=== PATIENT | male | born 1990 | race African-American/Black ===

== ENCOUNTER 2016-10-24 16:44 | Emergency (ER) | payer SELFPAY ==
[~2016-10-24] VITALS: Ht 170.2 cm; Wt 90.5 kg
[~2016-10-24 16:44] MED LIST: HYDR-3533 PO; OMEP20TA PO; SUCR1TAB PO
[2016-10-24 16:46] VITALS: BP 146/99; PULSE 73; RESP 18; TEMP 97.8; O2SAT 97
[2016-10-24] MEDS ORDERED: SODIUM CHLOR 0.9% 1000 ML INJ 1,000 ML IV SCH (17:25)
[2016-10-24 17:27] VITALS: BP 175/89; PULSE 64; RESP 17; O2SAT 99
--- NOTE | 2016-10-24 17:29 | PD ---
HPI Chief Complaint: Abdominal Pain Time Seen by Provider: 17:22 Travel History International Travel<30 days: No Contact w/Intl Traveler<30days: No Traveled to known affect area: No History of Present Illness HPI 26-year-old male with history of alcoholic gastritis, here with friend for evaluation of abdominal pain. Patient has not had an alcoholic beverage in last 1.5 weeks. He usually drinks a moderate amount of alcohol daily. He is having epigastric and mid abdominal pain that started yesterday. The patient is in moderate distress secondary to pain and does not provide much history. Most of his history is provided by female friend in the room. Patient does not characterize his pain. No history of abdominal surgeries. His urine was darker than usual this morning. He has been coughing up greenish sputum. No hematemesis or coffee-ground emesis. No fever. PFSH Past Medical History Medical History: Denies Significant Hx Asthma: Yes Diminished Hearing: No Tetanus Vaccination: > 5 Years Influenza Vaccination: No Social History Alcohol Use: Yes ("HEAVILY EVERY DAY") Tobacco Use: No Substance Use: Yes (MARIJUANA "ALL DAY EVERYDAY") Allergies-Medications (Allergen,Severity, Reaction): Coded Allergies: No Known Allergies (Unverified , 10/24/16) Reported Meds & Prescriptions Reported Meds & Active Scripts Active No Active Prescriptions or Reported Medications Review of Systems Except as stated in HPI: all other systems reviewed are Neg Physical Exam Narrative GENERAL: Well-developed, well-nourished, moderate distress secondary to abdominal pain. SKIN: Warm and dry. HEAD: Atraumatic. Normocephalic. EYES: Pupils equal and round. No scleral icterus. No injection or drainage. ENT: Mucous membranes pink and dry. CARDIOVASCULAR: Regular rate and rhythm. No murmur appreciated. RESPIRATORY: No accessory muscle use. Clear to auscultation. Breath sounds equal bilaterally. GASTROINTESTINAL: Abdomen soft, nondistended. Moderate diffuse tenderness without peritoneal signs. Normal bowel sounds. MUSCULOSKELETAL: No obvious deformities. No clubbing. No cyanosis. No edema. NEUROLOGICAL: Awake and alert. No obvious cranial nerve deficits. Motor grossly within normal limits. Normal speech. PSYCHIATRIC: Appropriate mood and affect; insight and judgment normal. Data Data Last Documented VS Vital Signs Date Time Temp Pulse Resp B/P Pulse Ox O2 Delivery O2 Flow Rate FiO2 10/24/16 18:27 63 16 171/90 98 Room Air 3/4/17 16:46 97.8 Orders Complete Blood Count With Diff (10/24/16 17:25) Comprehensive Metabolic Panel (10/24/16:25) Lipase (10/24/16:25) Prothrombin Time / Inr (Pt) (10/24/16:25) Act Partial Throm Time (Ptt) (10/24/16:25) Urinalysis - C+S If Indicated (10/24/16:) Ct Abd/Pel W Iv Contrast(Rout) (10/24/16 17:25) Iv Access Insert/Monitor (10/24/16:25) Ecg Monitoring (10/24/16:) Oximetry (10/24/16:) Morphine Inj (Morphine Inj) (10/24/16 17:30) Ondansetron Inj (Zofran Inj) (10/24/16 17:30) Pantoprazole Inj (Protonix Inj) (10/24/16 17:30) Sodium Chlor 0.9% 1000 Ml Inj (Ns 1000 M (10/24/16 17:25) Sodium Chloride 0.9% Flush (Ns Flush) (10/24/16 17:30) Al-Mag Hy-Si 40-40-4 Mg/Ml Liq (Mag-Al P (10/24/16 17:30) Lidocaine 2% Viscous (Xylocaine 2% Visco (10/24/16 17:30) Drug Screen, Random Urine (10/24/16 17:25) Alcohol (Ethanol) (10/24/16 17:25) Iohexol 350 Inj (Omnipaque 350 Inj) (10/24/16 18:45) Labs Laboratory Tests Test 10/24/16 17:35 White Blood Count 9.2 TH/MM3 Red Blood Count 5.26 MIL/MM3 Hemoglobin 14.8 GM/DL Hematocrit 44.9 % Mean Corpuscular Volume 85.3 FL Mean Corpuscular Hemoglobin 28.2 PG Mean Corpuscular Hemoglobin 33.1 % Concent Red Cell Distribution Width 14.0 % Platelet Count 187 TH/MM3 Mean Platelet Volume 9.5 FL Neutrophils (%) (Auto) 74.5 % Lymphocytes (%) (Auto) 15.7 % Monocytes (%) (Auto) 9.6 % Eosinophils (%) (Auto) 0.1 % Basophils (%) (Auto) 0.1 % Neutrophils # (Auto) 6.8 TH/MM3 Lymphocytes # (Auto) 1.4 TH/MM3 Monocytes # (Auto) 0.9 TH/MM3 Eosinophils # (Auto) 0.0 TH/MM3 Basophils # (Auto) 0.0 TH/MM3 CBC Comment DIFF FINAL Differential Comment Prothrombin Time 11.7 SEC Prothromb Time International 1.1 RATIO Ratio Activated Partial 26.6 SEC Thromboplast Time Sodium Level 139 MEQ/L Potassium Level 3.6 MEQ/L Chloride Level 101 MEQ/L Carbon Dioxide Level 28.7 MEQ/L Anion Gap 9 MEQ/L Blood Urea Nitrogen 12 MG/DL Creatinine 1.62 MG/DL Estimat Glomerular Filtration 62 ML/MIN Rate Random Glucose 112 MG/DL Calcium Level 9.7 MG/DL Total Bilirubin 0.6 MG/DL Aspartate Amino Transf 50 U/L (AST/SGOT) Alanine Aminotransferase 45 U/L (ALT/SGPT) Alkaline Phosphatase 42 U/L Total Protein 8.6 GM/DL Albumin 5.1 GM/DL Lipase 89 U/L Ethyl Alcohol Level LESS THAN 3 MG/DL MDM Medical Decision Making Medical Screen Exam Complete: Yes Emergency Medical Condition: Yes Medical Record Reviewed: Yes Differential Diagnosis Gastritis, peptic ulcer disease, pancreatitis, hepatobiliary disease, appendicitis, colitis, Narrative Course Vital signs show heart rate 73, blood pressure 146/99, pulse ox 97% on room air , oral temp of 97.8F. CBC is unremarkable. CMP is remarkable for creatinine 1.62, GFR 62 which is around his baseline, otherwise unremarkable. Lipase is 89. CT abdomen pelvis: FINDINGS: No pleural or pericardial effusions are seen. Liver, gallbladder, spleen, pancreas, adrenal glands, bilateral kidneys are normal in appearance. Small fat containing umbilical hernia. The appendix, small bowel and large bowel are normal. Urinary bladder and prostate unremarkable. No adenopathy or aneurysm. No obstruction, free fluid or free air. Osseous structures are intact. Lung bases are clear. CONCLUSION: Normal examination. Patient was given a GI cocktail, IV morphine, Protonix, a liter of normal saline IV, and is resting comfortably. His abdominal exam is benign. He is likely suffering from gastritis as he consumes a moderate amount of alcohol. His alcohol level is negative. He is not displaying any signs or symptoms of alcohol withdrawal. He is stable for discharge home with outpatient follow-up with a primary care physician this week. I will discharge him home with a prescription for Protonix. I will also given the name of the body shop worker montessori toddler teacher with whom to follow-up with. He was informed on when to return to the emergency department. He verbalizes understanding and agreement with plan Diagnosis Primary Impression: Abdominal pain Qualified Code: R10.13 - Epigastric pain Referrals: Esvin Montalvo MD 3 days [facility] Primary Care Physician 3 days Additional Instructions: Follow-up with a primary care physician this week. Follow-up with body shop worker Dr. Selvin hernandez or a body shop worker of your choice this week. Return to the emergency department for worsening symptoms or any other concerns. Scripts Tramadol 50 Mg Tab50 Mg PO Q6H PRN (PAIN) #12 TAB Ref 0 Prov:Denny Carlin MD 10/24/16 Pantoprazole (Protonix)40 Mg Tab40 Mg PO DAILY #30 TAB Ref 2 Prov:Denny Carlin MD 10/24/16 Disposition: 01 DISCHARGE HOME Condition: Stable Denny Carlin MD Oct 24, 2016 17:29
[2016-10-24] MEDS ORDERED: ALUMINUM/MAGNESIUM/SIMETH 30 ML CUP PO ONE (17:30)
[2016-10-24] MEDS ORDERED: PANTOPRAZOLE SODIUM 40 MG VIAL IVP ONE (17:30)
[2016-10-24] MEDS ORDERED: ONDANSETRON HCL 4 MG/2 ML VIAL IVP ONE (17:30)
[2016-10-24] MEDS ORDERED: LIDOCAINE VISCOUS 2% SOLN 15 ML UDC PO ONE (17:30)
[2016-10-24] MEDS ORDERED: MORPHINE SULFATE 4 MG/ML INJ IV PUSH ONE (17:30)
[2016-10-24] MEDS ORDERED: SODIUM CHLORIDE 0.9% FLUSH 5 ML FLUSH IVF PRN (17:30)
[2016-10-24 17:53] LABS: AUTOMATED NEUTROPHIL # 6.8 TH/MM3 (1.8-7.7); BASOPHIL % 0.1 % (0.0-2.0); EOSINOPHIL % 0.1 % (0.0-4.0); HEMATOCRIT 44.9 % (39.0-51.0); HEMO FLAGS DIFF FINAL; LYMPH % 15.7 % (9.0-44.0); LYMPHOCYTE # 1.4 TH/MM3 (1.0-4.8); MEAN CELL VOLUME 85.3 FL (80.0-100.0); MEAN CORPUSCULAR HEMOGLOBIN 28.2 PG (27.0-34.0); MEAN CORPUSCULAR HGB CONC 33.1 % (32.0-36.0); MONO % 9.6 % (0.0-8.0); NEUT % 74.5 % (16.0-70.0); PLATELET COUNT 187 TH/MM3 (150-450); RED BLOOD COUNT 5.26 MIL/MM3 (4.50-5.90); WHITE BLOOD COUNT 9.2 TH/MM3 (4.0-11.0)
[2016-10-24 18:01] LABS: APTT (PATIENT) 26.6 SEC (24.3-30.1); INTERNATIONAL NORMALIZED RATIO 1.1 RATIO; PROTHROMBIN TIME - PATIENT 11.7 SEC (9.8-11.6)
[2016-10-24 18:20] LABS: ANION GAP 9 MEQ/L (5-15)
[2016-10-24 18:23] LABS: ALKALINE PHOSPHATASE 42 U/L (45-117); ALT (GPT) 45 U/L (12-78); AST (GOT) 50 U/L (15-37); BICARBONATE 28.7 MEQ/L (21.0-32.0); BLOOD UREA NITROGEN 12 MG/DL (7-18); CHLORIDE 101 MEQ/L (98-107); GLOMERULAR FILTRATION RATE 62 ML/MIN (>89); POTASSIUM 3.6 MEQ/L (3.5-5.1); SODIUM (NA) 139 MEQ/L (136-145); TOTAL BILIRUBIN ADULT 0.6 MG/DL (0.2-1.0)
[2016-10-24 18:27] VITALS: BP 171/90; PULSE 63; RESP 16; O2SAT 98
[2016-10-24] MEDS ORDERED: IOHEXOL 350 MG/ML 10 ML VIAL (for RAD DIAG) IV ONE (18:45)
--- NOTE | 2016-10-24 18:58 | RADRPT ---
EXAM DATE/TIME: 10/24/2016 18:40 [facility] COMPARISON: CT ABDOMEN & PELVIS W CONTRAST, December 22, 2015, 18:51. INDICATIONS : Diffuse abdominal pain X 2 days. IV CONTRAST: 87 cc Omnipaque 350 (iohexol) IV ORAL CONTRAST: No oral contrast ingested. RADIATION DOSE: 8.08 CTDIvol (mGy) MEDICAL HISTORY : Asthma, Gastritis SURGICAL HISTORY : None. ENCOUNTER: Initial ACUITY: 2 days PAIN SCALE: 7/10 LOCATION: abdomen TECHNIQUE: Volumetric scanning of the abdomen and pelvis was performed. Using automated exposure control and ad justment of the mA and/or kV according to patient size, radiation dose was kept as low as reasonably achievable to obtain optimal diagnostic quality images. FINDINGS: No pleural or pericardial effusions are seen. Liver, gallbladder, spleen, pancreas, adrenal glands, b ilateral kidneys are normal in appearance. Small fat containing umbilical hernia. The appendix, small bowel and large bowel are normal. Urinary bladder and prostate unremarkable. No adenopathy or aneury sm. No obstruction, free fluid or free air. Osseous structures are intact. Lung bases are clear. CONCLUSION: Normal examination. Bassem Steven MD on October 24, 2016 at 18:55 Board Certified Radiologist. This report was verified electronically.
[2016-10-24] MEDS ORDERED: TRAM50TA PO (19:21)
[2016-10-24] MEDS ORDERED: PROT40TA PO (19:21)
[2016-10-24 19:32] VITALS: BP 130/69; PULSE 73; RESP 14; O2SAT 98
== END 2016-10-24 19:56 | disposition home or self-care (01) ==
LOC: NEPC 16:44
DX: R10.13 Epigastric pain (principal)
CPT/HCPCS: 74177; 80053; 80320; 83690; 85025; 85610; 85730; 96361; 96374; 96375; 99284; C9113; J2270; J2405; J7030; Q9967

== ENCOUNTER 2016-10-27 12:24 | Emergency (ER) | payer SELFPAY ==
[~2016-10-27] VITALS: Ht 170.2 cm; Wt 95.0 kg
[~2016-10-27 12:24] MED LIST changes: -HYDR-3533 PO; -OMEP20TA PO; +PROT40TA PO; -SUCR1TAB PO; +TRAM50TA PO
[2016-10-27 12:29] VITALS: BP 165/106; PULSE 82; RESP 20; TEMP 98.4; O2SAT 100
[2016-10-27] MEDS ORDERED: ZOFR4TAB3 SL (20:54)
[2016-10-27] MEDS ORDERED: PERC7.5T13 PO (20:54)
== END 2016-10-27 15:43 | disposition left against medical advice (07) ==
LOC: NED 12:24
DX: Z53.21 Procedure and treatment not carried out due to patient leaving prior to being seen by health care provider (principal)
CPT/HCPCS: 99281

== ENCOUNTER 2016-10-27 18:57 | Emergency (ER) | payer SELFPAY ==
[~2016-10-27] VITALS: Ht 170.2 cm; Wt 88.0 kg
--- NOTE | 2016-10-27 19:51 | PD ---
HPI Chief Complaint: abdominal pain and vomiting Time Seen by Provider: 19:31 Travel History International Travel<30 days: No Contact w/Intl Traveler<30days: No Traveled to known affect area: No History of Present Illness HPI This 26-year-old male is complaining of abdominal pain. Says he been having pain for about 4 days. He went to [facility] on the fourth and had blood work which was unremarkable. He also had a CT scan done which was also normal. He had a bout of gastritis several months ago which was thought secondary to alcohol. He has not been drinking since [place] the pain is having is across the abdomen. He says the pain is constant. He has been taking Protonix. Says he been vomiting a lot. He says he has been having diarrhea but he has not had a bowel movement today PFSH Past Medical History Asthma: Yes Diminished Hearing: No Social History Alcohol Use: Yes ("HEAVILY EVERY DAY") Tobacco Use: No Substance Use: Yes (MARIJUANA "ALL DAY EVERYDAY") Allergies-Medications (Allergen,Severity, Reaction): Coded Allergies: No Known Allergies (Unverified , 10/27/16) Reported Meds & Prescriptions Reported Meds & Active Scripts Active Tramadol (Tramadol HCl) 50 Mg Tab 50 Mg PO Q6H PRN Protonix (Pantoprazole Sodium) 40 Mg Tab 40 Mg PO DAILY Review of Systems General / Constitutional: No: Fever, Chills Eyes: No: Diploplia, Blurred Vision HENT: No: Headaches, Vertigo Cardiovascular: No: Chest Pain or Discomfort, Palpitations Respiratory: No: Cough, Shortness of Breath Gastrointestinal: Positive: Nausea, Vomiting, Diarrhea, Abdominal Pain Genitourinary: No: Urgency, Frequency Musculoskeletal: No: Myalgias Skin: No Rash Psychiatric: No: Anxiety Physical Exam Narrative GENERAL: Well-developed male SKIN: Warm and dry. HEAD: Atraumatic. Normocephalic. EYES: Pupils equal and round. No scleral icterus. No injection or drainage. ENT: No nasal bleeding or discharge. Mucous membranes pink and moist. NECK: Trachea midline. No JVD. CARDIOVASCULAR: Regular rate and rhythm. No murmur appreciated. RESPIRATORY: No accessory muscle use. Clear to auscultation. Breath sounds equal bilaterally. GASTROINTESTINAL: Abdomen soft, there is epigastric tenderness, nondistended. Hepatic and splenic margins not palpable. MUSCULOSKELETAL: No obvious deformities. No clubbing. No cyanosis. No edema. NEUROLOGICAL: Awake and alert. No obvious cranial nerve deficits. Motor grossly within normal limits. Normal speech. PSYCHIATRIC: Appropriate mood and affect; insight and judgment normal. Data Data Last Documented VS Vital Signs Date Time Temp Pulse Resp B/P Pulse Ox O2 Delivery O2 Flow Rate FiO2 10/27/16 20:27 99.1 72 20 176/90 99 Orders Complete Blood Count With Diff (10/27/16 19:46) Comprehensive Metabolic Panel (10/27/16 19:46) Lipase (10/27/16 19:46) Sodium Chlor 0.9% 1000 Ml Inj (Ns 1000 M (10/27/16 20:00) Sodium Chlor 0.9% 1000 Ml Inj (Ns 1000 M (10/27/16 20:00) Hydromorphone Pf Inj (Dilaudid Pf Inj) (10/27/16 20:00) Ondansetron Inj (Zofran Inj) (10/27/16 20:00) Labs Laboratory Tests Test 10/27/16 20:00 White Blood Count 7.0 TH/MM3 Red Blood Count 5.16 MIL/MM3 Hemoglobin 14.3 GM/DL Hematocrit 44.3 % Mean Corpuscular Volume 85.8 FL Mean Corpuscular Hemoglobin 27.6 PG Mean Corpuscular Hemoglobin 32.2 % Concent Red Cell Distribution Width 13.1 % Platelet Count 219 TH/MM3 Mean Platelet Volume 9.3 FL Neutrophils (%) (Auto) 78.1 % Lymphocytes (%) (Auto) 13.3 % Monocytes (%) (Auto) 6.4 % Eosinophils (%) (Auto) 0.1 % Basophils (%) (Auto) 2.1 % Neutrophils # (Auto) 5.6 TH/MM3 Lymphocytes # (Auto) 0.9 TH/MM3 Monocytes # (Auto) 0.4 TH/MM3 Eosinophils # (Auto) 0.0 TH/MM3 Basophils # (Auto) 0.1 TH/MM3 CBC Comment DIFF FINAL Differential Comment Sodium Level 140 MEQ/L Potassium Level 3.4 MEQ/L Chloride Level 102 MEQ/L Carbon Dioxide Level 27.9 MEQ/L Anion Gap 10 MEQ/L Blood Urea Nitrogen 10 MG/DL Creatinine 1.30 MG/DL Estimat Glomerular Filtration 80 ML/MIN Rate Random Glucose 103 MG/DL Calcium Level 9.1 MG/DL Total Bilirubin 0.6 MG/DL Aspartate Amino Transf 59 U/L (AST/SGOT) Alanine Aminotransferase 49 U/L (ALT/SGPT) Alkaline Phosphatase 40 U/L Total Protein 8.0 GM/DL Albumin 4.5 GM/DL Lipase 102 U/L [facility] Medical Decision Making Medical Screen Exam Complete: Yes Emergency Medical Condition: Yes Medical Record Reviewed: Yes Differential Diagnosis Differential includes gastritis, ulcer, Narrative Course White count today is 7000. He had a CT scan several days ago which was normal. This is not suspicious for appendicitis. He has been given some IV fluids and pain medicine. He'll be released with Zofran and also Percocet I believe he does have gastritis. I recommended follow-up with a health education aide Diagnosis Primary Impression: Acute gastritis Qualified Code: K29.00 - Acute gastritis without hemorrhage, unspecified gastritis type Additional Instructions: follow up with gastroenterology Scripts Oxycodone-Acetaminophen (Percocet)7.5-325 mg Tab1 Tab PO Q4H PRN (PAIN) #20 TAB Ref 0 Prov:Gary Paul MD 10/27/16 Ondansetron Odt (Zofran Odt)4 Mg Tab4 Mg SL Q6HR PRN (Nausea/Vomiting) #20 TAB Ref 0 Prov:Gary Paul MD 10/27/16 Disposition: 01 DISCHARGE HOME Condition: Stable Gary Paul MD Oct 27, 2016 19:51
[2016-10-27] MEDS ORDERED: SODIUM CHLOR 0.9% 1000 ML INJ 1,000 ML IV ONE ×2 (20:00)
[2016-10-27] MEDS ORDERED: HYDROmorphone HCL PF 1 MG/ML VIAL IV PUSH ONE (20:00)
[2016-10-27] MEDS ORDERED: ONDANSETRON HCL 4 MG/2 ML VIAL IV PUSH ONE (20:00)
[2016-10-27 20:15] LABS: AUTOMATED NEUTROPHIL # 5.6 TH/MM3 (1.8-7.7); BASOPHIL # 0.1 TH/MM3 (0-0.2); BASOPHIL % 2.1 % (0.0-2.0); EOSINOPHIL % 0.1 % (0.0-4.0); HEMATOCRIT 44.3 % (39.0-51.0); HEMO FLAGS DIFF FINAL; LYMPH % 13.3 % (9.0-44.0); LYMPHOCYTE # 0.9 TH/MM3 (1.0-4.8); MEAN CELL VOLUME 85.8 FL (80.0-100.0); MEAN CORPUSCULAR HEMOGLOBIN 27.6 PG (27.0-34.0); MEAN CORPUSCULAR HGB CONC 32.2 % (32.0-36.0); MONO % 6.4 % (0.0-8.0); NEUT % 78.1 % (16.0-70.0); PLATELET COUNT 219 TH/MM3 (150-450); RED BLOOD COUNT 5.16 MIL/MM3 (4.50-5.90); RED CELL DISTRIBUTION WIDTH 13.1 % (11.6-17.2)
[2016-10-27 20:24] LABS: CHLORIDE 102 MEQ/L (98-107); POTASSIUM 3.4 MEQ/L (3.5-5.1); SODIUM (NA) 140 MEQ/L (136-145)
[2016-10-27 20:27] VITALS: BP 176/90; PULSE 72; RESP 20; TEMP 99.1; O2SAT 99
[2016-10-27 20:28] LABS: ANION GAP 10 MEQ/L (5-15); BICARBONATE 27.9 MEQ/L (21.0-32.0); BLOOD UREA NITROGEN 10 MG/DL (7-18)
[2016-10-27 20:30] LABS: ALT (GPT) 49 U/L (12-78); AST (GOT) 59 U/L (15-37); GLOMERULAR FILTRATION RATE 80 ML/MIN (>89)
[2016-10-27 20:32] LABS: TOTAL BILIRUBIN ADULT 0.6 MG/DL (0.2-1.0)
[2016-10-27 20:33] LABS: ALKALINE PHOSPHATASE 40 U/L (45-117)
[2016-10-27 20:54] VITALS: RESP 18
[2016-10-27] MEDS ORDERED: PERC7.5T13 PO (20:54)
[2016-10-27] MEDS ORDERED: ZOFR4TAB3 SL (20:54)
[2016-10-27 21:42] VITALS: BP 173/94
== END 2016-10-27 21:55 | disposition home or self-care (01) ==
LOC: PHED 18:57
DX: K29.00 Acute gastritis without bleeding (principal); F10.29 Alcohol dependence with unspecified alcohol-induced disorder; F12.10 Cannabis abuse, uncomplicated
CPT/HCPCS: 80053; 83690; 85025; 96361; 96374; 96375; 99284; J1170; J2405; J7030

== ENCOUNTER 2017-03-21 00:20 | Emergency (ER) | payer SELFPAY ==
[~2017-03-21] VITALS: Ht 172.7 cm; Wt 100.0 kg
[~2017-03-21 00:20] MED LIST changes: +PERC7.5T13 PO; +ZOFR4TAB3 SL
[2017-03-21 00:27] VITALS: BP 132/84; PULSE 90; RESP 16; TEMP 98.1; O2SAT 100
[2017-03-21] MEDS ORDERED: SODIUM CHLOR 0.9% 1000 ML INJ 1,000 ML IV SCH (00:29)
[2017-03-21] MEDS ORDERED: PANTOPRAZOLE SODIUM 40 MG VIAL IVP ONE (00:30)
[2017-03-21] MEDS ORDERED: MORPHINE SULFATE 4 MG/ML INJ IV PUSH ONE (00:30)
[2017-03-21] MEDS ORDERED: ONDANSETRON HCL 4 MG/2 ML VIAL IVP ONE (00:30)
[2017-03-21] MEDS ORDERED: SODIUM CHLORIDE 0.9% FLUSH 10 ML FLUSH IV FLUSH PRN (00:30)
[2017-03-21] MEDS ORDERED: ZOFR4TAB3 SL (00:54)
[2017-03-21] MEDS ORDERED: PROT40TA PO (00:54)
--- NOTE | 2017-03-21 00:54 | PD ---
HPI Chief Complaint: Abdominal Pain Time Seen by Provider: 00:26 Travel History International Travel<30 days: No Contact w/Intl Traveler<30days: No Traveled to known affect area: No History of Present Illness HPI 27-year-old man with a history of alcoholic gastritis who presents to the emergency department complaining of epigastric/periumbilical abdominal pain this is been going for the past 2 days or so. He endorses nausea and vomiting as well. He's also had some loose bowel movements. He states he's had similar symptoms intermittently for the past year or so. Denies any other new or worsening symptoms. No other complaints. Patient denies NSAID use. Denies alcohol use. History Past Medical History Narrative Medical Alcoholic gastritis Tetanus Vaccination: < 5 Years Influenza Vaccination: No Social History Alcohol Use: No Tobacco Use: No Allergies-Medications (Allergen,Severity, Reaction): Coded Allergies: No Known Allergies (Unverified , 03/21/17) Reported Meds & Prescriptions Reported Meds & Active Scripts Active Protonix (Pantoprazole Sodium) 40 Mg Tab 40 Mg PO DAILY Zofran Odt (Ondansetron Odt) 4 Mg Tab 4 Mg SL Q6HR PRN Review of Systems ROS Limitations: Poor Historian Except as stated in HPI: all other systems reviewed are Neg Physical Exam Narrative GENERAL: 27-year-old man, appears uncomfortable but nontoxic. Coronal by side. SKIN: Focused skin assessment warm/dry. CARDIOVASCULAR: Regular rate and rhythm. No murmur appreciated. RESPIRATORY: No accessory muscle use. Clear to auscultation. Breath sounds equal bilaterally. GASTROINTESTINAL: Mild diffuse periumbilical tenderness. No rebound or guarding. MUSCULOSKELETAL: No obvious deformities. No clubbing. No cyanosis. No edema. NEUROLOGICAL: Awake and alert. No obvious cranial nerve deficits. Motor grossly within normal limits. Normal speech. PSYCHIATRIC: Appropriate mood and affect; insight and judgment normal. Data Data Last Documented VS Vital Signs Date Time Temp Pulse Resp B/P Pulse Ox O2 Delivery O2 Flow Rate FiO2 03/21/17 00:27 98.1 90 16 132/84 100 Orders Complete Blood Count With Diff (03/21/17 00:29) Comprehensive Metabolic Panel (03/21/17 00:29) Lipase (03/21/17 00:29) Iv Access Insert/Monitor (03/21/17 00:29) NPO (03/21/17 00:29) Morphine Inj (Morphine Inj) (03/21/17 00:30) Ondansetron Inj (Zofran Inj) (03/21/17 00:30) Pantoprazole Inj (Protonix Inj) (03/21/17 00:30) Sodium Chlor 0.9% 1000 Ml Inj (Ns 1000 M (03/21/17 00:29) Sodium Chloride 0.9% Flush (Ns Flush) (03/21/17 00:30) Labs Laboratory Tests Test 03/21/17 00:30 White Blood Count 13.0 TH/MM3 Red Blood Count 4.57 MIL/MM3 Hemoglobin 12.6 GM/DL Hematocrit 38.8 % Mean Corpuscular Volume 84.7 FL Mean Corpuscular Hemoglobin 27.5 PG Mean Corpuscular Hemoglobin 32.5 % Concent Red Cell Distribution Width 13.6 % Platelet Count 268 TH/MM3 Mean Platelet Volume 8.3 FL Neutrophils (%) (Auto) 86.0 % Lymphocytes (%) (Auto) 9.6 % Monocytes (%) (Auto) 3.7 % Eosinophils (%) (Auto) 0.1 % Basophils (%) (Auto) 0.6 % Neutrophils # (Auto) 11.2 TH/MM3 Lymphocytes # (Auto) 1.3 TH/MM3 Monocytes # (Auto) 0.5 TH/MM3 Eosinophils # (Auto) 0.0 TH/MM3 Basophils # (Auto) 0.1 TH/MM3 CBC Comment DIFF FINAL Differential Comment Sodium Level 141 MEQ/L Potassium Level 3.5 MEQ/L Chloride Level 105 MEQ/L Carbon Dioxide Level 29.0 MEQ/L Anion Gap 7 MEQ/L Blood Urea Nitrogen 9 MG/DL Creatinine 1.44 MG/DL Estimat Glomerular Filtration 70 ML/MIN Rate Random Glucose 122 MG/DL Calcium Level 9.3 MG/DL Total Bilirubin 0.3 MG/DL Aspartate Amino Transf 17 U/L (AST/SGOT) Alanine Aminotransferase 23 U/L (ALT/SGPT) Alkaline Phosphatase 41 U/L Total Protein 8.0 GM/DL Albumin 4.2 GM/DL Lipase 101 U/L [facility] Medical Decision Making Medical Screen Exam Complete: Yes Emergency Medical Condition: Yes Interpretation(s) LABS: CBC remarkable for mild leukocytosis. CMP remarkable for creatinine 1.44 Lipase normal Differential Diagnosis Gastritis, pancreatitis, hepatobiliary disease, marijuana hyperemesis syndrome, other Narrative Course Medical decision making Is a 27-year-old man presents emergent department stating history gastritis or recurrent symptoms. Records show a history of alcoholic gastritis. Patient denies any alcohol use now. Looks uncomfortable but nontoxic. Benign abdominal exam. Previous imaging is been unremarkable. Recommend labs, medication, restart on some PPIs. He is not taking anything as an outpatient now. Diagnosis Primary Impression: Acute gastritis Additional Instructions: Take omeprazole as prescribed. Avoid alcohol or anti-inflammatory pain medication such as ibuprofen or Aleve. Follow-up with your primary doctor in 1-2 weeks for repeat evaluation. Return to the emergency department for any new or worsening symptoms. Med/Other Pt SpecificInfo: Prescription(s) given Scripts Pantoprazole (Protonix)40 Mg Tab40 Mg PO DAILY #30 TAB Ref 2 Prov:Yung Staples MD 03/21/17 Ondansetron Odt (Zofran Odt)4 Mg Tab4 Mg SL Q6HR PRN (Nausea/Vomiting) #20 TAB Ref 0 Prov:Yung Staples MD 03/21/17 Disposition: 01 DISCHARGE HOME Condition: Stable Yung Staples MD Mar 21, 2017 00:54
[2017-03-21 00:55] LABS: AUTOMATED NEUTROPHIL # 11.2 TH/MM3 (1.8-7.7); BASOPHIL # 0.1 TH/MM3 (0-0.2); BASOPHIL % 0.6 % (0.0-2.0); EOSINOPHIL % 0.1 % (0.0-4.0); HEMATOCRIT 38.8 % (39.0-51.0); HEMO FLAGS DIFF FINAL; LYMPH % 9.6 % (9.0-44.0); LYMPHOCYTE # 1.3 TH/MM3 (1.0-4.8); MEAN CELL VOLUME 84.7 FL (80.0-100.0); MEAN CORPUSCULAR HEMOGLOBIN 27.5 PG (27.0-34.0); MEAN CORPUSCULAR HGB CONC 32.5 % (32.0-36.0); MONO % 3.7 % (0.0-8.0); PLATELET COUNT 268 TH/MM3 (150-450); RED BLOOD COUNT 4.57 MIL/MM3 (4.50-5.90); RED CELL DISTRIBUTION WIDTH 13.6 % (11.6-17.2)
[2017-03-21 01:15] LABS: ALT (GPT) 23 U/L (12-78); ANION GAP 7 MEQ/L (5-15); AST (GOT) 17 U/L (15-37); BLOOD UREA NITROGEN 9 MG/DL (7-18); CHLORIDE 105 MEQ/L (98-107); GLOMERULAR FILTRATION RATE 70 ML/MIN (>89); POTASSIUM 3.5 MEQ/L (3.5-5.1); SODIUM (NA) 141 MEQ/L (136-145)
[2017-03-21 01:17] LABS: ALKALINE PHOSPHATASE 41 U/L (45-117); TOTAL BILIRUBIN ADULT 0.3 MG/DL (0.2-1.0)
[2017-03-21] MEDS ORDERED: ALUMINUM/MAGNESIUM/SIMETH 30 ML CUP PO ONE (02:00)
[2017-03-21] MEDS ORDERED: ONDANSETRON ODT 4 MG TAB PO ONE (02:00)
== END 2017-03-21 02:57 | disposition home or self-care (01) ==
LOC: NEPC 00:20
DX: K29.00 Acute gastritis without bleeding (principal)
CPT/HCPCS: 80053; 83690; 85025; 96374; 96375; 99284; C9113; J2270; J2405; J7030

== ENCOUNTER 2017-03-22 19:39 | Emergency (ER) | payer SELFPAY ==
[2017-03-22 19:41] VITALS: BP 175/100; PULSE 66; RESP 16; TEMP 100.1; O2SAT 98
== END 2017-03-22 23:30 | disposition left against medical advice (07) ==
LOC: NED 19:39
DX: K29.70 Gastritis, unspecified, without bleeding (principal); Z53.21 Procedure and treatment not carried out due to patient leaving prior to being seen by health care provider
CPT/HCPCS: 99281

== ENCOUNTER 2017-07-21 00:35 | Emergency (ER) | payer SELFPAY ==
[~2017-07-21] VITALS: Ht 175.3 cm; Wt 86.0 kg
[~2017-07-21 00:35] MED LIST changes: -PERC7.5T13 PO; -TRAM50TA PO
[2017-07-21 00:47] VITALS: BP 137/75; PULSE 56; RESP 18; TEMP 98.5; O2SAT 99
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
[2017-07-21 01:00] VITALS: RESP 22; O2SAT 99
[2017-07-21] MEDS ORDERED: SODIUM CHLOR 0.9% 1000 ML INJ 1,000 ML IV ONE ×2 (01:00→02:00)
[2017-07-21] MEDS ORDERED: METOCLOPRAMIDE HCL 10 MG/2 ML VIAL IV PUSH ONE (01:00)
[2017-07-21 01:11] LABS: BASOPHIL # 0.1 TH/MM3 (0-0.2); BASOPHIL % 0.5 % (0.0-2.0); HEMATOCRIT 43.4 % (39.0-51.0); HEMO FLAGS DIFF FINAL; LYMPH % 6.5 % (9.0-44.0); LYMPHOCYTE # 0.8 TH/MM3 (1.0-4.8); MEAN CELL VOLUME 85.3 FL (80.0-100.0); MEAN CORPUSCULAR HGB CONC 32.8 % (32.0-36.0); MONO % 2.2 % (0.0-8.0); NEUT % 90.8 % (16.0-70.0); PLATELET COUNT 174 TH/MM3 (150-450); RED BLOOD COUNT 5.08 MIL/MM3 (4.50-5.90); WHITE BLOOD COUNT 12.1 TH/MM3 (4.0-11.0)
[2017-07-21 01:31] LABS: ALKALINE PHOSPHATASE 41 U/L (45-117); CREATINE KINASE 659 U/L (39-308); TOTAL BILIRUBIN ADULT 0.3 MG/DL (0.2-1.0)
--- NOTE | 2017-07-21 01:32 | RADRPT ---
EXAM DATE/TIME: 07/21/2017 01:08 [facility] COMPARISON: CHEST SINGLE AP, December 22, 2015, 17:33. INDICATIONS : Vomiting, short of breath. MEDICAL HISTORY : None. SURGICAL HISTORY : None. ENCOUNTER: Initial ACUITY: 1 day PAIN SCORE: 0/10 LOCATION: Bilateral chest FINDINGS: The patient is mildly rotated towards the right. There is slight increased density in the left chest compared to the right chest which may be from the rotation. The lungs appear grossly clear. The heart size is normal. No effusion is seen. CONCLUSION: No acute disease. Romie Kc MD on July 21, 2017 at 1:29 Board Certified Radiologist. This report was verified electronically.
[2017-07-21 01:37] LABS: ALT (GPT) 31 U/L (12-78); ANION GAP 9 MEQ/L (5-15); AST (GOT) 25 U/L (15-37); BLOOD UREA NITROGEN 13 MG/DL (7-18); CHLORIDE 103 MEQ/L (98-107); GLOMERULAR FILTRATION RATE 68 ML/MIN (>89); MAGNESIUM 1.7 MG/DL (1.5-2.5); POTASSIUM 4.5 MEQ/L (3.5-5.1); SODIUM (NA) 139 MEQ/L (136-145)
[2017-07-21 01:44] LABS: CKMB 1.9 NG/ML (0.5-3.6)
[2017-07-21 01:47] LABS: ALCOHOL LESS THAN 3 MG/DL (0-5)
[2017-07-21] MEDS ORDERED: HYDROmorphone HCL PF 0.5 MG/0.5 ML SYRINGE IV PUSH ONE (03:00)
[2017-07-21] MEDS ORDERED: IOHEXOL 350 MG/ML 10 ML VIAL (for RAD DIAG) IVCONTRAST ONE (03:04)
--- NOTE | 2017-07-21 03:21 | RADRPT ---
EXAM DATE/TIME: 07/21/2017 03:03 [facility] COMPARISON: CT ABDOMEN & PELVIS W CONTRAST, October 24, 2016, 18:40. INDICATIONS : Epigastric abdominal pain with nausea, vomiting and diarrhea. IV CONTRAST: 75 cc Omnipaque 350 (iohexol) IV ORAL CONTRAST: No oral contrast ingested. RADIATION DOSE: 7.99 CTDIvol (mGy) MEDICAL HISTORY : None SURGICAL HISTORY : None. ENCOUNTER: Initial ACUITY: 1 day PAIN SCALE: 10/10 LOCATION: Epigastric. TECHNIQUE: Volumetric scanning of the abdomen and pelvis was performed. Using automated exposure control and ad justment of the mA and/or kV according to patient size, radiation dose was kept as low as reasonably achievable to obtain optimal diagnostic quality images. DICOM format image data is available electro nically for review and comparison. FINDINGS: LOWER LUNGS: The visualized lower lungs are clear. LIVER: Homogeneous density without lesion. There is no dilation of the biliary tree. No calcified gallston es. SPLEEN: Normal size without lesion. PANCREAS: Within normal limits. KIDNEYS: Normal in size and shape. There is no mass, stone or hydronephrosis. ADRENAL GLANDS: Within normal limits. VASCULAR: There is no aortic aneurysm. BOWEL/MESENTERY: The stomach, small bowel, and colon demonstrate no acute abnormality. There is no free intraperitone al air or fluid. The appendix is normal. ABDOMINAL WALL: Within normal limits. RETROPERITONEUM: There is no lymphadenopathy. BLADDER: No wall thickening or mass. REPRODUCTIVE: Within normal limits. INGUINAL: There is no lymphadenopathy or hernia. MUSCULOSKELETAL: Within normal limits for patient age. CONCLUSION: Negative CT examination. Romie Kc MD on July 21, 2017 at 3:17 Board Certified Radiologist. This report was verified electronically.
[2017-07-21] MEDS ORDERED: ZOFR4TAB3 SL (03:45)
[2017-07-21] MEDS ORDERED: DICY10 PO (03:45)
[2017-07-21] MEDS ORDERED: FAMO20TA2 PO (03:45)
--- NOTE | 2017-07-21 09:29 | EKG ---
Date Performed: 07/21/2017 Time Performed: 00:55:06 PTAGE: 27 years EKG: Sinus rhythm WITH SINUS ARRHYTHMIA NONSPECIFIC T-WAVE ABNORMALITY ABNORMAL ECG Compared to prior electrocardiogra m, Nonspecific T wave changes are now present . NO PREVIOUS TRACING DOCTOR: Abhishek Bhakta Interpretating Date/Time 07/21/2017 09:27:10
== END 2017-07-21 04:20 | disposition home or self-care (01) ==
LOC: NEPC 00:35
DX: R10.13 Epigastric pain (principal); R11.2 Nausea with vomiting, unspecified; R19.7 Diarrhea, unspecified; I49.9 Cardiac arrhythmia, unspecified; R94.31 Abnormal electrocardiogram [ECG] [EKG]; J45.909 Unspecified asthma, uncomplicated
CPT/HCPCS: 71010; 74177; 80053; 80307; 82550; 82552; 83690; 83735; 84484; 85025; 93005; 96374; 96375; 99285; J1170; J2765; J7030; Q9967

== ENCOUNTER 2017-09-09 13:50 | Emergency (ER) | payer SELFPAY ==
[~2017-09-09 13:50] MED LIST changes: +DICY10 PO; +FAMO20TA2 PO; -PROT40TA PO
[2017-09-09 14:08] VITALS: BP 139/87; PULSE 82; RESP 18; TEMP 98.7; O2SAT 100
[2017-09-09] MEDS ORDERED: SODIUM CHLOR 0.9% 1000 ML INJ 1,000 ML IV SCH (15:08)
[2017-09-09] MEDS ORDERED: ONDANSETRON HCL 4 MG/2 ML VIAL IVP ONE (15:15)
[2017-09-09] MEDS ORDERED: LIDOCAINE VISCOUS 2% SOLN 15 ML UDC PO ONE (15:15)
[2017-09-09] MEDS ORDERED: DICYCLOMINE HCL 20 MG/2 ML VIAL IM ONE (15:15)
[2017-09-09] MEDS ORDERED: ALUMINUM/MAGNESIUM/SIMETH 30 ML CUP PO ONE (15:15)
[2017-09-09] MEDS ORDERED: MORPHINE SULFATE 2 MG/ML INJ IV PUSH ONE ×2 (15:15→17:45)
[2017-09-09] MEDS ORDERED: SODIUM CHLORIDE 0.9% FLUSH 10 ML FLUSH IV FLUSH PRN (15:15)
[2017-09-09] MEDS ORDERED: FAMOTIDINE 20 MG/2 ML VIAL IV PUSH ONE (15:15)
--- NOTE | 2017-09-09 15:41 | PD ---
HPI Chief Complaint: GI Complaint Time Seen by Provider: 15:04 Travel History International Travel<30 days: No Contact w/Intl Traveler<30days: No Traveled to known affect area: No History of Present Illness HPI 27-year-old Afro-[place] male with history of recurrent gastritis type symptoms including abdominal pain, nausea, vomiting, workups in the past. Patient was reportedly supposed to see a GI specialist. Patient was treated with pantoprazole, and ranitidine in the past as well as Bentyl. He is here with his with intractable abdominal pain nausea and vomiting. Patient has not had any fever or chills. Denies diarrhea. Patient has no known drug allergies. PFSH Past Medical History Asthma: Yes Diminished Hearing: No Tetanus Vaccination: < 5 Years ?: Not Social History Alcohol Use: Yes (occ) Tobacco Use: No Substance Use: Yes (MARIJUANA) Allergies-Medications (Allergen,Severity, Reaction): Coded Allergies: No Known Allergies (Unverified Adverse Reaction, Unknown, 07/21/17) Reported Meds & Prescriptions Reported Meds & Active Scripts Active Famotidine 20 Mg Tab 20 Mg PO BID Bentyl (Dicyclomine HCl) 10 Mg Cap 10 Mg PO QID PRN Zofran Odt (Ondansetron Odt) 4 Mg Tab 4 Mg SL Q6HR PRN Review of Systems ROS Limitations: Clinical Condition, Poor Historian Except as stated in HPI: all other systems reviewed are Neg General / Constitutional: No: Fever, Chills Eyes: No: Visual changes HENT: No: Headaches Cardiovascular: No: Chest Pain or Discomfort Respiratory: No: Shortness of Breath Gastrointestinal: Positive: Nausea, Vomiting, Abdominal Pain, Loss of Appetite , No: Diarrhea, Hematemesis, Hematochezia, Constipation, Indigestion, Dysphagia Genitourinary: No: Dysuria Musculoskeletal: No: Pain Skin: No Rash Neurologic: No: Weakness Psychiatric: No: Depression Endocrine: No: Polydipsia Hematologic/Lymphatic: No: Easy Bruising Physical Exam Exam Limitations: Clinical Condition Narrative GENERAL: Well-nourished appearing male complaining of significant epigastric tenderness and abdominal pain. SKIN: Warm and dry. Normal color. Normal turgor. HEAD: Atraumatic. Normocephalic. EYES: Pupils equal and round. No scleral icterus. No injection or drainage. ENT: No nasal bleeding or discharge. Mucous membranes pink and moist. Pharynx is clear. Airway is patent. NECK: Trachea midline. No JVD. CARDIOVASCULAR: Regular rate and rhythm. RESPIRATORY: No accessory muscle use. Clear to auscultation. Breath sounds equal bilaterally. GASTROINTESTINAL: Abdomen soft, diffuse nonspecific tenderness, nondistended. Normal bowel sounds appreciated. Hepatic and splenic margins not palpable. MUSCULOSKELETAL: Extremities without clubbing, cyanosis, or edema. No obvious deformities. NEUROLOGICAL: Awake and alert. No obvious cranial nerve deficits. Motor grossly within normal limits. Five out of 5 muscle strength in the arms and legs. Normal speech. PSYCHIATRIC: Appropriate mood and affect; insight and judgment normal. Data Data Last Documented VS Vital Signs Date Time Temp Pulse Resp B/P (MAP) Pulse Ox O2 Delivery O2 Flow Rate FiO2 09/09/17 22:48 09/09/17 21:01 66 18 100 Room Air 09/09/17 14:08 98.7 Orders Orders Complete Blood Count With Diff (09/09/17 14:11) Urinalysis - C+S If Indicated (09/09/17 14:11) Iv Access Insert/Monitor (09/09/17 14:11) Oxygen Administration (09/09/17 14:11) Oximetry (09/09/17 14:11) Lipase (09/09/17 15:08) Lactic Acid (09/09/17 15:08) Prothrombin Time / Inr (Pt) (09/09/17 15:08) Act Partial Throm Time (Ptt) (09/09/17 15:08) Ecg Monitoring (09/09/17 15:08) NPO (09/09/17 15:08) Ondansetron Inj (Zofran Inj) (09/09/17 15:15) Sodium Chlor 0.9% 1000 Ml Inj (Ns 1000 M (09/09/17 15:08) Sodium Chloride 0.9% Flush (Ns Flush) (09/09/17 15:15) Electrocardiogram (09/09/17 15:08) Famotidine Inj (Pepcid Inj) (09/09/17 15:15) Dicyclomine Inj (Bentyl Inj) (09/09/17 15:15) Al-Mag Hy-Si 40-40-4 Mg/Ml Liq (Mag-Al P (09/09/17 15:15) Lidocaine 2% Viscous (Xylocaine 2% Visco (09/09/17 15:15) Morphine Inj (Morphine Inj) (09/09/17 15:15) Ct Abd/Pel W Iv Contrast(Rout) (09/09/17 16:06) Sodium Chlor 0.9% 1000 Ml Inj (Ns 1000 M (09/09/17 17:30) Morphine Inj (Morphine Inj) (09/09/17 17:45) Comprehensive Metabolic Panel (09/09/17 15:30) Diphenhydramine Inj (Benadryl Inj) (09/09/17 19:45) Metoclopramide Inj (Reglan Inj) (09/09/17 19:45) Iohexol 350 Inj (Omnipaque 350 Inj) (09/09/17 19:50) Ed Discharge Order (09/09/17 22:15) Labs Laboratory Tests Test 09/09/17 15:30 09/09/17 18:35 09/09/17 20:54 Prothrombin Time 10.7 SEC Prothromb Time International Ratio 1.1 RATIO Activated Partial Thromboplast Time 23.0 SEC Blood Urea Nitrogen 14 MG/DL Creatinine 1.34 MG/DL Random Glucose 120 MG/DL Total Protein 8.1 GM/DL Albumin 5.0 GM/DL Calcium Level 9.6 MG/DL Alkaline Phosphatase 43 U/L Aspartate Amino Transf (AST/SGOT) 19 U/L Alanine Aminotransferase (ALT/SGPT) 28 U/L Total Bilirubin 0.6 MG/DL Sodium Level 141 MEQ/L Potassium Level 3.5 MEQ/L Chloride Level 104 MEQ/L Carbon Dioxide Level 25.6 MEQ/L Anion Gap 11 MEQ/L Estimat Glomerular Filtration Rate 76 ML/MIN Lactic Acid Level 2.0 mmol/L Lipase 101 U/L White Blood Count 7.4 TH/MM3 Red Blood Count 4.98 MIL/MM3 Hemoglobin 13.6 GM/DL Hematocrit 42.1 % Mean Corpuscular Volume 84.5 FL Mean Corpuscular Hemoglobin 27.4 PG Mean Corpuscular Hemoglobin Concent 32.4 % Red Cell Distribution Width 13.4 % Platelet Count 198 TH/MM3 Mean Platelet Volume 9.7 FL Neutrophils (%) (Auto) 82.1 % Lymphocytes (%) (Auto) 12.2 % Monocytes (%) (Auto) 5.3 % Eosinophils (%) (Auto) 0.0 % Basophils (%) (Auto) 0.4 % Neutrophils # (Auto) 6.1 TH/MM3 Lymphocytes # (Auto) 0.9 TH/MM3 Monocytes # (Auto) 0.4 TH/MM3 Eosinophils # (Auto) 0.0 TH/MM3 Basophils # (Auto) 0.0 TH/MM3 CBC Comment DIFF FINAL Differential Comment Urine Color LIGHT-YELLOW Urine Turbidity CLEAR Urine pH 8.0 Urine Specific [place] 1.037 Urine Protein NEG mg/dL Urine Glucose (UA) NEG mg/dL Urine Ketones NEG mg/dL Urine Occult Blood NEG Urine Nitrite NEG Urine Bilirubin NEG Urine Urobilinogen LESS THAN 2.0 MG/DL Urine Leukocyte Esterase NEG Urine WBC LESS THAN 1 /hpf Urine Squamous Epithelial Cells <1 /hpf Microscopic Urinalysis Comment CULT NOT INDICATED MDM Medical Decision Making Medical Screen Exam Complete: Yes Emergency Medical Condition: Yes Medical Record Reviewed: Yes Differential Diagnosis Recurrent epigastric gastritis. Colitis. Irritable bowel syndrome. Malingering. Narrative Course Patient appears medically stable at time of exam. Laboratory includes CBC, CMP, lactic acid, urinalysis, and lipase. IV access is obtained and the patient is given 4 mg Zofran IV, 40 mg pantoprazole IV as well as 20 mg Bentyl IM. GI cocktail is ordered. Patient is given [address] the abdomen is pelvis is ordered with oral contrast. EKG shows sinus rhythm without significant ST changes. Rate is 91 bpm. 1740 hrs. second dose of 2 mg morphine IV is ordered. 1900 hrs., Care patient is turned over to [facility]. CT scan and labs still pending. Final disposition will be determined by him Scripts Famotidine (Famotidine) 20 Mg Tab 20 MG PO BID, #30 TAB 0 Refills Prov: Denny Carlin MD 09/09/17 Dicyclomine (Bentyl) 10 Mg Cap 10 MG PO QID Y for CRAMPS, #12 CAP 0 Refills Prov: Denny Carlin MD 09/09/17 Ondansetron Odt (Zofran Odt) 4 Mg Tab 4 MG SL Q6HR Y for Nausea/Vomiting, #20 TAB 0 Refills Prov: Denny Carlin MD 09/09/17 Condition: Stable Fabrizio Hanna Sep 09, 2017 15:41
[2017-09-09 15:57] LABS: LIPASE 101 U/L (73-393)
[2017-09-09 16:06] LABS: INTERNATIONAL NORMALIZED RATIO 1.1 RATIO; PROTHROMBIN TIME - PATIENT 10.7 SEC (9.8-11.6)
[2017-09-09] MEDS ORDERED: SODIUM CHLOR 0.9% 1000 ML INJ 1,000 ML IV ONE (17:30)
[2017-09-09 17:45] VITALS: BP 126/89; PULSE 81; RESP 18; O2SAT 100
[2017-09-09 18:45] VITALS: BP 128/69; PULSE 67; RESP 16; O2SAT 99
[2017-09-09 18:55] LABS: AST (GOT) 19 U/L (15-37); BICARBONATE 25.6 MEQ/L (21.0-32.0); BLOOD UREA NITROGEN 14 MG/DL (7-18); CALCIUM 9.6 MG/DL (8.5-10.1); CHLORIDE 104 MEQ/L (98-107); CREATININE 1.34 MG/DL (0.60-1.30); GLOMERULAR FILTRATION RATE 76 ML/MIN (>89); GLUCOSE,RANDOM 120 MG/DL (74-106); SODIUM (NA) 141 MEQ/L (136-145)
[2017-09-09 18:56] LABS: ALT (GPT) 28 U/L (12-78)
[2017-09-09 18:58] LABS: ALKALINE PHOSPHATASE 43 U/L (45-117); TOTAL BILIRUBIN ADULT 0.6 MG/DL (0.2-1.0); TOTAL PROTEIN 8.1 GM/DL (6.4-8.2)
[2017-09-09 19:03] LABS: AUTOMATED NEUTROPHIL # 6.1 TH/MM3 (1.8-7.7); BASOPHIL % 0.4 % (0.0-2.0); HEMATOCRIT 42.1 % (39.0-51.0); HEMOGLOBIN 13.6 GM/DL (13.0-17.0); LYMPH % 12.2 % (9.0-44.0); LYMPHOCYTE # 0.9 TH/MM3 (1.0-4.8); MEAN CELL VOLUME 84.5 FL (80.0-100.0); MEAN CORPUSCULAR HEMOGLOBIN 27.4 PG (27.0-34.0); MEAN CORPUSCULAR HGB CONC 32.4 % (32.0-36.0); MEAN PLATELET VOLUME 9.7 FL (7.0-11.0); MONO % 5.3 % (0.0-8.0); MONOCYTE # 0.4 TH/MM3 (0-0.9); NEUT % 82.1 % (16.0-70.0); PLATELET COUNT 198 TH/MM3 (150-450); RED BLOOD COUNT 4.98 MIL/MM3 (4.50-5.90); RED CELL DISTRIBUTION WIDTH 13.4 % (11.6-17.2); WHITE BLOOD COUNT 7.4 TH/MM3 (4.0-11.0)
--- NOTE | 2017-09-09 19:39 | EKG ---
Date Performed: 09/09/2017 Time Performed: 16:35:46 PTAGE: 27 years EKG: Sinus rhythm NORMAL ECG Compared to prior electrocardiogram, rate has increased and Nonspecific T wave changes no longer present. PREVIOUS TRACING : 07/21/2017 00.55 DOCTOR: Abhishek Bhakta Interpretating Date/Time 09/09/2017 19:37:19
--- NOTE | 2017-09-09 19:43 | PD ---
Physical Exam Date Seen by Provider: Sep 09, 2017 Time Seen by Provider: 19:39 Narrative GENERAL: This is a well-nourished, well-developed patient, in no apparent distress. The patient is laying comfortable in examination room on his side with the sheets pulled up over his head. SKIN: No rashes, ecchymoses or lesions. Warm and dry. HEAD: Atraumatic. Normocephalic. EYES: PERRL, EOMI, no discharge or injection. No scleral icterus. EARS: Clear NOSE: Nasal turbinates appear normal. THROAT: Mucosa pink and moist. Airway patent. NECK: Trachea midline. supple, moves head freely. LUNGS: Clear to auscultation. CV: Regular in rhythm. ABDOMEN: Soft, mild tenderness in the lower left and suprapubic area. No guarding or rebound. EXT: No clubbing cyanosis or edema. Data Data Last Documented VS Vital Signs Date Time Temp Pulse Resp B/P (MAP) Pulse Ox O2 Delivery O2 Flow Rate FiO2 09/09/17 21:01 66 18 139/83 (101) 100 Room Air 09/09/17 14:08 98.7 Orders Orders Complete Blood Count With Diff (09/09/17 14:11) Urinalysis - C+S If Indicated (09/09/17 14:11) Iv Access Insert/Monitor (09/09/17 14:11) Oxygen Administration (09/09/17 14:11) Oximetry (09/09/17 14:11) Lipase (09/09/17 15:08) Lactic Acid (09/09/17 15:08) Prothrombin Time / Inr (Pt) (09/09/17 15:08) Act Partial Throm Time (Ptt) (09/09/17 15:08) Ecg Monitoring (09/09/17 15:08) NPO (09/09/17 15:08) Ondansetron Inj (Zofran Inj) (09/09/17 15:15) Sodium Chlor 0.9% 1000 Ml Inj (Ns 1000 M (09/09/17 15:08) Sodium Chloride 0.9% Flush (Ns Flush) (09/09/17 15:15) Electrocardiogram (09/09/17 15:08) Famotidine Inj (Pepcid Inj) (09/09/17 15:15) Dicyclomine Inj (Bentyl Inj) (09/09/17 15:15) Al-Mag Hy-Si 40-40-4 Mg/Ml Liq (Mag-Al P (09/09/17 15:15) Lidocaine 2% Viscous (Xylocaine 2% Visco (09/09/17 15:15) Morphine Inj (Morphine Inj) (09/09/17 15:15) Ct Abd/Pel W Iv Contrast(Rout) (09/09/17 16:06) Sodium Chlor 0.9% 1000 Ml Inj (Ns 1000 M (09/09/17 17:30) Morphine Inj (Morphine Inj) (09/09/17 17:45) Comprehensive Metabolic Panel (09/09/17 15:30) Diphenhydramine Inj (Benadryl Inj) (09/09/17 19:45) Metoclopramide Inj (Reglan Inj) (09/09/17 19:45) Iohexol 350 Inj (Omnipaque 350 Inj) (09/09/17 19:50) Labs Laboratory Tests Test 09/09/17 15:30 09/09/17 18:35 Prothrombin Time 10.7 SEC Prothromb Time International Ratio 1.1 RATIO Activated Partial Thromboplast Time 23.0 SEC Blood Urea Nitrogen 14 MG/DL Creatinine 1.34 MG/DL Random Glucose 120 MG/DL Total Protein 8.1 GM/DL Albumin 5.0 GM/DL Calcium Level 9.6 MG/DL Alkaline Phosphatase 43 U/L Aspartate Amino Transf (AST/SGOT) 19 U/L Alanine Aminotransferase (ALT/SGPT) 28 U/L Total Bilirubin 0.6 MG/DL Sodium Level 141 MEQ/L Potassium Level 3.5 MEQ/L Chloride Level 104 MEQ/L Carbon Dioxide Level 25.6 MEQ/L Anion Gap 11 MEQ/L Estimat Glomerular Filtration Rate 76 ML/MIN Lactic Acid Level 2.0 mmol/L Lipase 101 U/L White Blood Count 7.4 TH/MM3 Red Blood Count 4.98 MIL/MM3 Hemoglobin 13.6 GM/DL Hematocrit 42.1 % Mean Corpuscular Volume 84.5 FL Mean Corpuscular Hemoglobin 27.4 PG Mean Corpuscular Hemoglobin Concent 32.4 % Red Cell Distribution Width 13.4 % Platelet Count 198 TH/MM3 Mean Platelet Volume 9.7 FL Neutrophils (%) (Auto) 82.1 % Lymphocytes (%) (Auto) 12.2 % Monocytes (%) (Auto) 5.3 % Eosinophils (%) (Auto) 0.0 % Basophils (%) (Auto) 0.4 % Neutrophils # (Auto) 6.1 TH/MM3 Lymphocytes # (Auto) 0.9 TH/MM3 Monocytes # (Auto) 0.4 TH/MM3 Eosinophils # (Auto) 0.0 TH/MM3 Basophils # (Auto) 0.0 TH/MM3 CBC Comment DIFF FINAL Differential Comment MDM Medical Record Reviewed: Yes Supervised Visit with SRAVANI: No Interpretation(s) Last 24 hours Impressions Abdomen/Pelvis CT 09/09/17 1606 Signed Impressions: Service Date/Time: August 19:37 - CONCLUSION: Normal examination. Jonny Vallejo Jr., MD CBC & BMP Diagram 09/09/17 15:30 Total Protein 8.1, Albumin 5.0, Calcium Level 9.6, Alkaline Phosphatase 43 L, Aspartate Amino Transf (AST/SGOT) 19, Alanine Aminotransferase (ALT/SGPT) 28, Total Bilirubin 0.6 09/09/17 18:35 Differential Diagnosis Differential diagnosis: Acute abdominal pain, chronic abdominal pain, gastritis , cyclical vomiting, colitis or diverticulitis Narrative Course IV access is obtained. Patient given a liter of saline. Patient given additional dose of Benadryl 50 mg and Reglan 10 mg IV. The patient is taking by mouth fluids without vomiting. He is feeling and looking much better. This is gastritis Diagnosis Primary Impression: Acute gastritis Qualified Codes: K29.00 - Acute gastritis without bleeding Patient Instructions: General Instructions Med/Other Pt SpecificInfo: Prescription(s) given Scripts Famotidine (Famotidine) 20 Mg Tab 20 MG PO BID, #30 TAB 0 Refills Prov: Denny Carlin MD 09/09/17 Dicyclomine (Bentyl) 10 Mg Cap 10 MG PO QID Y for CRAMPS, #12 CAP 0 Refills Prov: Denny Carlin MD 09/09/17 Ondansetron Odt (Zofran Odt) 4 Mg Tab 4 MG SL Q6HR Y for Nausea/Vomiting, #20 TAB 0 Refills Prov: Denny Carlin MD 09/09/17 Condition: Stable Chinedu Duran Sep 09, 2017 19:43
[2017-09-09] MEDS ORDERED: METOCLOPRAMIDE HCL 10 MG/2 ML VIAL IV PUSH ONE (19:45)
[2017-09-09] MEDS ORDERED: diphenhydrAMINE HCL 50 MG/ML VIAL IV PUSH ONE (19:45)
[2017-09-09] MEDS ORDERED: IOHEXOL 350 MG/ML 10 ML VIAL (for RAD DIAG) IVCONTRAST ONE (19:50)
--- NOTE | 2017-09-09 20:19 | RADRPT ---
EXAM DATE/TIME: 09/09/2017 19:37 [facility] COMPARISON: CT ABDOMEN & PELVIS W CONTRAST, July 21, 2017, 3:03. INDICATIONS : Abdominal pain with nausea and vomiting. IV CONTRAST: 100 cc Omnipaque 350 (iohexol) IV ORAL CONTRAST: No oral contrast ingested. RADIATION DOSE: 6.91 CTDIvol (mGy) MEDICAL HISTORY : None SURGICAL HISTORY : None. ENCOUNTER: Initial ACUITY: 1 day PAIN SCALE: 5/10 LOCATION: All quadrants. TECHNIQUE: Volumetric scanning of the abdomen and pelvis was performed. Using automated exposure control and ad justment of the mA and/or kV according to patient size, radiation dose was kept as low as reasonably achievable to obtain optimal diagnostic quality images. DICOM format image data is available electro nically for review and comparison. FINDINGS: LOWER LUNGS: The visualized lower lungs are clear. LIVER: Homogeneous density without lesion. There is no dilation of the biliary tree. No calcified gallston es. SPLEEN: Normal size without lesion. PANCREAS: Within normal limits. KIDNEYS: Normal in size and shape. There is no mass, stone or hydronephrosis. ADRENAL GLANDS: Within normal limits. VASCULAR: There is no aortic aneurysm. BOWEL/MESENTERY: The stomach, small bowel, and colon demonstrate no acute abnormality. There is no free intraperitone al air or fluid. ABDOMINAL WALL: Within normal limits. RETROPERITONEUM: There is no lymphadenopathy. BLADDER: No wall thickening or mass. REPRODUCTIVE: Within normal limits. INGUINAL: There is no lymphadenopathy or hernia. MUSCULOSKELETAL: Within normal limits for patient age. CONCLUSION: Normal examination. Jonny Vallejo Jr., MD on September 09, 2017 at 20:16 Board Certified Radiologist. This report was verified electronically.
[2017-09-09] MEDS ORDERED: DICY10 PO (20:25)
[2017-09-09] MEDS ORDERED: ZOFR4TAB3 SL (20:25)
[2017-09-09] MEDS ORDERED: FAMO20TA2 PO (20:25)
[2017-09-09 21:01] VITALS: BP 139/83; PULSE 66; RESP 18; O2SAT 100
[2017-09-09 22:12] LABS: BILIRUBIN, URINE NEG (NEG); BLOOD, URINE NEG (NEG); GLUCOSE,URINE NEG (NEG); KETONE, URINE NEG (NEG); NITRITE,URINE NEG (NEG); SQUAMOUS EPITHELIAL CELL URINE <1 /hpf (0-5); URINE COLOR LIGHT-YELLOW (YELLW/STRAW); URINE LEUKOCYTE ESTERASE NEG (NEG)
== END 2017-09-09 22:48 | disposition home or self-care (01) ==
LOC: NEPD 13:50
DX: K29.00 Acute gastritis without bleeding (principal); J45.909 Unspecified asthma, uncomplicated
CPT/HCPCS: 74177; 80053; 81001; 83605; 83690; 85025; 85610; 85730; 93005; 96361; 96374; 96375; 96376; 99285; J1200; J2270; J2405; J2765; J7030; Q9967